=== PATIENT | male | born 1945 | race Caucasian/White ===

== ENCOUNTER → 2018-05-30 | Outpatient (CLI) | payer MEDICARE, OTHER | LOC: M.MRI 14:02 | DX: S83.241A Other tear of medial meniscus, current injury, right knee, initial encounter (principal); M17.11 Unilateral primary osteoarthritis, right knee; M71.21 Synovial cyst of popliteal space [Baker], right knee; X58.XXXA Exposure to other specified factors, initial encounter; Y93.89 Activity, other specified; Y92.89 Other specified places as the place of occurrence of the external cause; Y99.8 Other external cause status ==

== ENCOUNTER 2018-06-24 08:27 | Inpatient (IN) | payer MEDICARE, OTHER ==
[2018-06-12 08:43] LABS: HEMATOCRIT 43.6 % (42.0-52.0); HEMOGLOBIN 14.7 gm/dL (14.0-18.0); MCH 30.1 pg (26.0-34.0); MCHC 33.7 g/dL (28.0-37.0); MCV 89.3 fL (80.0-100.0); MPV 7.7 fl. (7.2-11.1); RBC 4.88 mil/uL (4.50-6.00); WBC 8.1 thou/uL (4.0-11.0)
[2018-06-12 08:53] LABS: URINE BILIRUBIN NEGATIVE (Negative); URINE BLOOD NEGATIVE (Negative); URINE CLARITY CLEAR; URINE COLOR YELLOW; URINE GLUCOSE-RANDOM NEGATIVE (Negative); URINE KETONES NEGATIVE (Negative); URINE LEUKOCYTES-REFLEX NEGATIVE (Negative); URINE NITRITE-REFLEX NEGATIVE (Negative); URINE PROTEIN NEGATIVE (Negative); URINE UROBILINOGEN 0.2 E.U./dl (0.2-1.0)
[2018-06-12 09:00] LABS: ALBUMIN 3.5 g/dL (3.4-5.0); CALCIUM 9.2 mg/dL (8.5-10.1); CREATININE 1.1 mg/dL (0.6-1.3); TOTAL BILIRUBIN 0.5 mg/dL (<0.1-1.0); TOTAL PROTEIN 7.2 g/dL (6.4-8.2)
--- NOTE | 2018-06-12 13:15 | EKG ---
[place] [address] ELECTROCARDIOGRAM REPORT Name: MORENA PEPPER Room: PRE IN [facility]#: [id number] Admission: Attend Phys: Elmo Hoffmann Discharge: Date of : 41 Report #: [id number] THIS REPORT FOR: //name// [facility] Test Date: 2018-06-12 Test Time: 09:04:30 Pat Name: MORENA PEPPER Department: Room: Gender: M Calibration Checker: : 1945 Requested By: Zan Gardiner Order Number: [id number] Samaria MD: Jayme Gutierrez Measurements Intervals [place] Rate: 99 P: -26 WI: 139 QRS: -38 QRSD: 140 T: 36 QT: 360 QTc: 462 Interpretive Statements Sinus tachycardia Multiple premature complexes,supraven Right bundle branch block No previous ECG available for comparison Electronically Signed On 06-12-2018 13:15:10 CDT by Jayme Gutierrez [email or web address] <ELECTRONICALLY SIGNED> By: Jayme Gutierrez MD, [facility] 06/12/18 1315 0904 3 Jayme Gutierrez MD, FACC /EPI
[~2018-06-24] VITALS: Ht 180.3 cm; Wt 108.9 kg
[~2018-06-24 08:27] MED LIST: DILTIAZEM 24HR300 M2 PO; ELIQUIS5 MG PO; LIPITOR10 MG PO; NAPROSYN500 MG PO
[2018-06-24 09:40] VITALS: BP 150/73
[2018-06-24 13:25] VITALS: BP 137/78
[2018-06-24 16:38] VITALS: BP 113/46
[2018-06-24 20:00] VITALS: BP 130/79
[2018-06-25] VITALS (8 sets, daily range): BP systolic 124–147; BP diastolic 52–90
[2018-06-25 04:43] LABS: HEMOGLOBIN 12.7 gm/dL (14.0-18.0)
[2018-06-25] MEDS ORDERED: PERCOCET 5-3251 EACH PO (16:27)
--- NOTE | 2018-06-26 08:54 | OP ---
[facility] [address] [place] [address] OPERATIVE REPORT Name: MORENA PEPPER Room: [address] IN M.R.#: [id number] Admission: 06/24/18 Attend Phys: Elmo Hoffmann Discharge: 06/25/18 Date of : 41 Report #: [id number] THIS REPORT FOR: //name// CC: Matthew Hinojosa DATE OF SERVICE: 06/24/2018 PREOPERATIVE DIAGNOSIS: Right knee osteoarthritis. POSTOPERATIVE DIAGNOSIS: Right knee osteoarthritis. PROCEDURE: Right total knee arthroplasty. SURGEON: Zan Gardiner II, DO. WARE FINISHER: BRISEYDA Lyons. ANESTHESIA: General endotracheal. ESTIMATED BLOOD LOSS: 50 mL. ANTIBIOTICS: Ancef preoperatively. DRAINS: Medium Hemovac. COMPLICATIONS: None. CONDITION OF THE PATIENT: Stable to recovery room. IMPLANTS: Listed in the operative record and progress note. BRIEF HISTORY: The patient was seen in the preoperative area. Preoperative H and P was performed. Site was marked, questions were answered. Risks and benefits were discussed with the patient in detail about the surgery. The patient wished to proceed assuming all risks. DESCRIPTION OF PROCEDURE: The patient was taken to the operative suite, placed supine on the operating table and given appropriate anesthesia. A well-padded tourniquet was applied to the upper thigh. It was inflated to 300 mmHg after gravity exsanguination. The operative knee was sterilely prepped and draped. Surgery began by midline incision. This was carried down to subcutaneous tissues. A medial parapatellar arthrotomy was performed and carried down to the bone. The patella was then everted and excess soft tissue was removed from around the femur. Femoral cutting block was then applied, checked with a drop [facility] [address] [place] [address] OPERATIVE REPORT Name: MORENA PEPPER Room: [address] [place] [facility].#: [id number] Admission: 06/24/18 Attend Phys: Elmo Hoffmann Discharge: 06/25/18 Date of : 41 Report #: [id number] rich for rotational alignment, pinned in appropriate position and appropriate cuts were made. A 4-in-1 cutting block was then applied, checked for rotational alignment, pinned into appropriate position and appropriate cuts were made. The tibia was then exposed. The excess meniscus was removed. Retractor was placed along the collateral ligaments. The tibial cutting block was then applied, pinned in appropriate position, checked with drop rich for rotational alignment and slope and appropriate cut was made. The tibia bone was removed. The tibial base plate was then applied, checked for rotational alignment with the drop rich and pinned into appropriate position. The femur was then applied and box cut was reamed. This was then trialed with the appropriate spacer, which showed excellent fit and fill and excellent stability of the knee through all range of motion. The patella was then reamed in appropriate fashion and sized for appropriate size. Three peg holes were drilled. It was then trialed and showed excellent flexion and extension and excellent tracking of the patella within the groove. These trials were removed. The tibia was punched in appropriate fashion. Bone ends were cleaned with Pulsavac irrigation and cement was mixed and applied to the final implants. Knee was then malleted in position and held the knee in extension and compressed to allow the cement to cure. After it cured, excess cement was removed utilizing a [place] and osteotome. The knee was then copiously irrigated and the final spacer was malleted into position. The tourniquet was deflated. Hemostasis was obtained with electrocautery. Pain cocktail was injected. PRP gel was sprayed throughout the internal aspects of the knee. Medium Hemovac drain was applied. Capsule was closed with 2 FiberWire and 1 Vicryl in a [id number] fashion. Skin was closed with 2-0 Vicryl and a running 3-0 Monocryl. Dermabond and sterile dressing applied. Arpan wrap and PolarCare applied. The patient transported to the recovery room in stable condition. Counts were correct throughout the procedure. <ELECTRONICALLY SIGNED> By: Zan Gardiner II, DO 06/26/18 0854 [id number] Gardiner II, DO /nt
== END 2018-06-25 17:30 | disposition home health service (06) | DRG 470 ==
LOC: M.ORTHSURG 08:27 → M.TBA 08:27 → M.PRE 09:05 → M.ORTHSURG 13:07
PROVIDERS: Orthopaedic Surgery; ADMIT Internal Medicine
PROC: 0SRC069 Replacement of Right Knee Joint with Oxidized Zirconium on Polyethylene Synthetic Substitute, Cemented, Open Approach (ICD-10-PCS; principal; 2018-06-24)
DX: M17.11 Unilateral primary osteoarthritis, right knee (principal); D62 Acute posthemorrhagic anemia; I48.91 Unspecified atrial fibrillation; I10 Essential (primary) hypertension; E78.5 Hyperlipidemia, unspecified; Z79.01 Long term (current) use of anticoagulants; Z79.899 Other long term (current) drug therapy

== ENCOUNTER → 2018-08-05 | Outpatient (CLI) | payer MEDICARE, OTHER ==
[~2018-08-05] MED LIST changes: +PERCOCET 5-3251 EACH PO
== END ==
LOC: M.MRI 11:45
DX: S83.232A Complex tear of medial meniscus, current injury, left knee, initial encounter (principal); S83.282A Other tear of lateral meniscus, current injury, left knee, initial encounter; M17.12 Unilateral primary osteoarthritis, left knee; X58.XXXA Exposure to other specified factors, initial encounter; Y93.89 Activity, other specified; Y92.89 Other specified places as the place of occurrence of the external cause; Y99.8 Other external cause status

== ENCOUNTER 2018-08-26 06:36 | Inpatient (IN) | payer MEDICARE, OTHER ==
[2018-08-14 09:11] LABS: HEMATOCRIT 38.9 % (42.0-52.0); HEMOGLOBIN 13.1 gm/dL (14.0-18.0); MCH 28.9 pg (26.0-34.0); MCHC 33.6 g/dL (28.0-37.0); MCV 85.9 fL (80.0-100.0); MPV 7.9 fl. (7.2-11.1); RBC 4.52 mil/uL (4.50-6.00)
[2018-08-14 09:14] LABS: PROTIME 10.1 Seconds (9.20-11.50)
[2018-08-14 09:19] LABS: URINE BILIRUBIN NEGATIVE (Negative); URINE BLOOD NEGATIVE (Negative); URINE CLARITY CLEAR; URINE COLOR YELLOW; URINE GLUCOSE-RANDOM NEGATIVE (Negative); URINE KETONES NEGATIVE (Negative); URINE LEUKOCYTES-REFLEX NEGATIVE (Negative); URINE NITRITE-REFLEX NEGATIVE (Negative); URINE PROTEIN NEGATIVE (Negative); URINE UROBILINOGEN 0.2 E.U./dl (0.2-1.0)
[2018-08-14 09:25] LABS: ALBUMIN 3.4 g/dL (3.4-5.0); CALCIUM 9.5 mg/dL (8.5-10.1); CREATININE 1.1 mg/dL (0.6-1.3); POTASSIUM 3.9 mmol/L (3.5-5.1); TOTAL BILIRUBIN 0.4 mg/dL (<0.1-1.0); TOTAL PROTEIN 7.3 g/dL (6.4-8.2)
[~2018-08-26] VITALS: Ht 180.3 cm; Wt 90.7 kg
[2018-08-26 07:15] VITALS: BP 92/64
[2018-08-26 15:18] VITALS: BP 124/71
--- NOTE | 2018-08-26 15:42 | NUR ---
PT ADMITTED TO UNIT WITH LT KNEE REPLACEMENT. ALERT AND ORIENTED. PT ON ROOM AIR WITH CAPNO. PULSES 2+. DRESSING C/D/I. HEMOVAC IN PLACE. REGULAR DIET. BRENDA HOSE ON RT LEG. FOOT PUMPS IN PLACE. PAIN MEDS GIVEN PRIOR TO ADMISSION. LT FA IV WITH 1/2 NS AT 75. FALL RISK PRECAUTIONS IN PLACE. HOURLY ROUNDING COMPLETED. WILL CONTINUE TO MONITOR.
--- NOTE | 2018-08-26 16:40 | NUR ---
RECIEVED O.T. ORDERS. WILL DEFER TO P.T. AT THIS TIME. PLEASE ORDER FURTHER O.T. SERVICES IF NEEDED.
--- NOTE | 2018-08-26 17:10 | NUR ---
PT REMAINED ALERT AND ORIENTED. PT RESTING IN ROOM. PT HAS NOT WALKED AT THIS TIME. FALL RISK PRECAUTIONS IN PLACE. HOURLY ROUNDING COMPLETED. WILL CONTINUE TO MONITOR.
[2018-08-26 20:15] VITALS: BP 129/73
[2018-08-27] VITALS (8 sets, daily range): BP systolic 139–149; BP diastolic 67–77
[2018-08-27 01:14] LABS: HEMATOCRIT 35.2 % (42.0-52.0); HEMOGLOBIN 11.5 gm/dL (14.0-18.0)
--- NOTE | 2018-08-27 03:28 | NUR ---
ASSUMED CARE AT START OF SHIFT PT RESTING IN BED CPM PLACED AND PT TOLERATING WELL, PAIN PILLS GIVEN X1 SAT 97 % , DISCUSSED PLAN OF CARE AND PT VERBALIZED UNDERSTANDING AND AGREEABLE, RESTED WELL THROUGHOUT HOURLY ROUNDS,HEMOVAC INTACT EMPTIED 80ML OF DARK RED BLOOD. DRESSING DRY AND INTACT WITH POLAR CARE INTACT. WILL CONITNUE WITH CURRENT PLAN OF CARE.
[2018-08-27] MEDS ORDERED: NORCO 5-325 TA1 EAC1 PO (10:27)
--- NOTE | 2018-08-27 14:36 | NUR ---
PT.UP IN CHAIR WAITING ON SECOND THERAPY SESSION. HE SAID HE LIVES WITH HIS . SHE CAN HELP HIM AT HOME IF NEEDED. HE IS NORMALLY INDEPENDENT AT HOME. HAS A FRONT WHEEL WALKER IN ROOM FROM HOME. HE WANTS TO GO HOME TODAY. HAD SOME QUESTIONS ABOUT HIS PAIN MEDICATION. PASSED INFORMATION ON TO NURSE. HE IS ALREADY ON ELIQUIS AT HOME FOR AFIB. WOULD LIKE [facility] FOR HOME HEALTH FOR 2 WEEKS AND THEN COME TO OUTPT.THERAPY HERE AT [facility]. FAXED REFERRAL AND DISCHARGE ORDERS TO [facility]. NOTIFIED TOM/OP THERAPY OF PT.WANTING TO DO OUTPT.IN 2 WEEKS
--- NOTE | 2018-08-27 16:23 | NUR ---
PT GIVEN DISCHARGE INFORMATION, CARE NOTES, AND PRESCRIPTIONS. IV REMOVED. PT BELONGINGS GATHERED. FALL RISK PRECAUTIONS IN PLACE. HOURLY ROUNDING COMPLETED. PT LEFT TO HOME WITH HOME HEALTH.
--- NOTE | 2018-08-27 22:24 | OP ---
[facility] [address] [place] [address] OPERATIVE REPORT Name: MORENA PEPPER Room: [address] IN M.R.#: [id number] Admission: 08/26/18 Attend Phys: Elmo Hoffmann Discharge: 08/27/18 Date of : 41 Report #: [id number] THIS REPORT FOR: //name// CC: Matthew Hinojosa DATE OF SERVICE: 08/26/2018 PREOPERATIVE DIAGNOSIS: Left knee osteoarthritis. POSTOPERATIVE DIAGNOSIS: Left knee osteoarthritis. PROCEDURE: Left total knee arthroplasty. SURGEON: Zan Gardiner II, DO SENIOR ENTERPRISE ARCHITECT: BRISEYDA Lyons ANESTHESIA: General endotracheal. ESTIMATED BLOOD LOSS: 50 mL. ANTIBIOTICS: Ancef preoperatively. DRAINS: Medium Hemovac. COMPLICATIONS: None. DISPOSITION: Stable to recovery room. IMPLANTS: Listed in the operative record and progress note. BRIEF HISTORY: The patient had a preoperative evaluation in the clinic, did have a prior right total knee approximately 6 weeks ago, has had continued pain within the left knee, failed conservative management, and elected to proceed with total knee replacement. DESCRIPTION OF PROCEDURE: The patient was taken to the operative suite, placed supine on the operative table, and given appropriate anesthesia. A well-padded tourniquet was applied to the upper thigh, which was inflated to 300 mmHg after gravity exsanguination. The operative knee was sterilely prepped and draped. Surgery began by midline incision. This was carried down through the subcutaneous tissues. A medial parapatellar arthrotomy was performed and carried down to the bone. The patella was then everted and excess soft tissue was removed from around the femur. Femoral cutting block was then applied, [facility] [address] [place] [address] OPERATIVE REPORT Name: MORENA PEPPER Room: [address] IN ..#: [id number] Admission: 08/26/18 Attend Phys: Elmo Hoffmann Discharge: 08/27/18 Date of : 41 Report #: [id number] checked with a drop rich for rotational alignment, pinned in appropriate position, and appropriate cuts were made. A 4-in-1 cutting block was then applied, checked for rotational alignment, pinned in appropriate position, and appropriate cuts were made. The tibia was then exposed. Excess meniscus was removed. Retractor was placed along the collateral ligaments. The tibial cutting block was then applied, pinned in appropriate position, checked with the drop rich for rotational alignment and slope, and appropriate cut was made. The tibial bone was removed. The tibial base plate was then applied, checked for rotational alignment with a drop rich, and pinned in appropriate position. The femur was then applied and box cut was reamed. This was then trialed with the appropriate spacer, which showed excellent fit and fill and excellent stability of the knee through all range of motion. The patella was reamed in the appropriate fashion and sized for appropriate size. Three peg holes were drilled and it was then trialed. These showed excellent flexion and extension, and excellent tracking of the patella within the groove. These trials were removed. The tibia was punched in appropriate fashion. Bone ends were cleansed with Pulsavac irrigation and the cement was mixed and applied to the final implants. These were then malleted in position and held the knee in extension and compressed to allow the cement to cure. After it cured, excess cement was removed utilizing a [place] and osteotome. The wound was then copiously irrigated and final spacer was then malleted in position. Tourniquet was deflated. Hemostasis was maintained with electrocautery. Pain cocktail was injected. PRP gel was sprayed throughout the internal aspects of the knee. A medium Hemovac drain was applied. Capsule was closed with #2 FiberWire and #1 Vicryl in [id number] fashion. Skin was closed with 2-0 Vicryl and a running 3-0 Monocryl. Dermabond and sterile dressing applied. Arpan wrap and PolarCare applied. The patient transported to recovery room in stable condition. Counts were correct throughout the procedure. <ELECTRONICALLY SIGNED> By: Zan Gardiner II, DO 08/27/18 2224 [id number] [id number] Gardiner II, DO /nt
== END 2018-08-27 16:25 | disposition home health service (06) | DRG 470 ==
LOC: M.PRE → M.ORTHSURG 06:52 → M.TBA 06:52 → M.PRE 09:09 → M.ORTHSURG 14:15
PROVIDERS: Orthopaedic Surgery; ADMIT Internal Medicine
PROC: 0SRD0J9 Replacement of Left Knee Joint with Synthetic Substitute, Cemented, Open Approach (ICD-10-PCS; principal; 2018-08-26)
DX: M17.12 Unilateral primary osteoarthritis, left knee (principal); Z96.651 Presence of right artificial knee joint; I48.91 Unspecified atrial fibrillation; E78.5 Hyperlipidemia, unspecified; Z79.01 Long term (current) use of anticoagulants; Z79.899 Other long term (current) drug therapy